=== PATIENT | male | born 1975 | race Caucasian/White ===

== ENCOUNTER 2021-08-12 05:36 | Emergency (ER) | payer SELFPAY ==
[2021-08-12] MEDS ORDERED: Hydromorphone 1 mg/ml Injection ONE (05:54)
[2021-08-12] MEDS ORDERED: Zofran 4 MG/2 ML VIAL ONE (05:54)
[2021-08-12] MEDS ORDERED: TORAdol 30 mg Injection ONE (05:54)
[2021-08-12] MEDS ORDERED: Zofran 4 MG/2 ML VIAL IV ONE (05:56)
[2021-08-12] MEDS ORDERED: Sodium Chloride 0.9% 1000 ML 1,000 ML IV STA ×2 (05:56→07:53)
[2021-08-12] MEDS ORDERED: Hydromorphone 1 mg/ml Injection IV ONE (05:56)
[2021-08-12] MEDS ORDERED: TORAdol 30 mg Injection IV ONE (05:56)
[2021-08-12] MEDS ORDERED: Sodium Chloride 0.9% 1000 ML 1,000 ML ONE ×2 (06:00→07:11)
[2021-08-12 06:09] LABS: Absolute Neutrophil Ct (ANC) 6.14 (1.4-6.9); Basophil (Absolute #) 0.05 (0-0.4); Eosinophil % 4.5 % (0.00-5.0); Eosinophil (Absolute #) 0.48 (0-0.5); Hematocrit 44.1 % (42-50); Hemoglobin 14.9 gm/dl (12.5-18.0); Lymphocyte (Absolute #) 3.16 (1.0-4.6); Lymphocytes % 29.6 % (24.0-44.0); Mean Cell Volume 83.4 fl (78-100); Mean Corpuscular Hemoglobin 28.2 pg (26-32); Mean Corpuscular Hgb Concent. 33.8 g/dl (32-36); Mean Platelet Volume 9.6 fl (7.5-11.0); Monocyte (Absolute #) 0.83 (0.0-1.3); Monocytes % 7.8 % (0.0-12.0); Neutrophil % 57.6 % (36.0-66.0); Platelet Count 398 K/mm3 (150-450); Red Blood Count 5.29 M/mm3 (4.1-5.6); Red Cell Distribution Width 14.3 % (11.5-14.0); White Blood Count 10.7 K/mm3 (4.0-10.5)
--- NOTE | 2021-08-12 06:11 | ERPHSYRPT ---
- History of Present Illness Historian: patient Exam Limitations: no limitations Patient Subjective Stated Complaint: pt states "I woke up and rolled over and the pain was horrible." Triage Nursing Assessment: pt came into the er via wheelchair; pt is axo x4; pt is grimacing, irritable; c/o rt flank pain; pt states 7/10 pain to rt lower back; c/o N; denies V/D; abd is round, soft, nontender; active bowel sounds in all quads; tenderness to rt flank area; pt unable to urinate at time of assessment; hypertensive Timing/Duration: hour(s) (1) Activities at Onset: none Quality: sharpness, stabbing Abdominal Pain Onset Location: flank (Right flank) Pain Radiation: RLQ, groin Severity of Pain-Max: severe Severity of Pain-Current: severe Modifying Factors: Improves With: nothing Associated Symptoms: nausea, vomiting Previous symptoms: same symptoms as today Hx Tetanus, Diphtheria Vaccination/Date Given: No Hx Influenza Vaccination/Date Given: No Hx Pneumococcal Vaccination/Date Given: No <MYRNA TITUS - Last Filed: 08/12/21 06:07> <VASQUEZ SANCHEZ - Last Filed: 08/12/21 08:11> - History of Present Illness Time Seen by Provider: 08/12/21 05:50 Physician History: Patient is a 45-year-old white male who awoke at 5:00 this morning with severe colicky right flank pain. Which radiated in the scrotal area he has had some nausea and vomiting. He has a history of renal stones approximately 20 years ago. 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 - Vaccination Dates Date of 2cond Vaccination (if applicable): 02/03 <MYRNA TITUS - Last Filed: 08/12/21 06:07> - Review of Systems Constitutional: No Fever, No Chills Eyes: No Symptoms Ears, Nose, & Throat: No Symptoms Respiratory: No Cough, No Dyspnea Cardiac: No Chest Pain, No Edema, No Syncope Abdominal/Gastrointestinal: Abdominal Pain, Nausea, Vomiting, No Diarrhea Genitourinary Symptoms: Flank Pain, No Dysuria Musculoskeletal: No Back Pain, No Neck Pain Skin: No Rash Neurological: No Dizziness, No Focal Weakness, No Sensory Changes Psychological: No Symptoms Endocrine: No Symptoms All Other Systems: Reviewed and Negative <MYRNA TITUS Filed: 08/12/21 06:07> - Past Medical History Pertinent Past Medical History: Yes Cardiac History: Hypertension Endocrine Medical History: Diabetes Type II - Past Surgical History Past Surgical History: Yes Musculoskeletal: Orthopedic Surgery Other Surgical History: left shoulder - Social History Smoking Status: Never smoker Exposure to second hand smoke: No Drug Use: none Patient Lives Alone: No <MYRNA TITUS Filed: 08/12/21 06:07> - Physical Exam General Appearance: moderate distress, alert Eye Exam: PERRL/EOMI, eyes nml inspection Ears, Nose, Throat Exam: normal ENT inspection, pharynx normal, moist mucous membranes Neck Exam: normal inspection, non-tender, supple, full range of motion Respiratory Exam: normal breath sounds, lungs clear, No respiratory distress Cardiovascular Exam: regular rate/rhythm, normal heart sounds Gastrointestinal/Abdomen Exam: soft, No tenderness, No mass Back Exam: normal inspection, normal range of motion, No CVA tenderness, No vertebral tenderness Extremity Exam: normal inspection, normal range of motion, pelvis stable Neurologic Exam: alert, oriented x 3, cooperative, normal mood/affect, nml cerebellar function, sensation nml, No motor deficits Skin Exam: normal color, warm, dry SpO2 Interpretation: normal SpO2: 100 O2 Delivery: Room Air <MYRNA TITUS Filed: 08/12/21 06:07> - Nursing Vital Signs Nursing Vital Signs: Initial Vital Signs Temperature 99 F 08/12/21 05:44 Pulse Rate 85 08/12/21 05:44 Respiratory Rate 24 08/12/21 05:44 Blood Pressure 178/127 08/12/21 05:44 O2 Sat by Pulse Oximetry 100 08/12/21 05:44 Pain Scale Pain Intensity 9 - Course Nursing assessment & vital signs reviewed: Yes <SHENAMYRNA VALENCIA Filed: 08/12/21 06:07> - CT Exams Abdomen/Pelvis CT Interpretation: Tele-radiologist Report (right upper ureter 4 mm stone with moderate hydronephrosis) <LAURA,VASQUEZ - Last Filed: 08/12/21 08:11> Ordered Tests: Active Orders 24 hr Category Date Time Status IV Insertion STAT Care 08/12/21 05:56 Active ABDOMEN AND PELVIS W/0 CONTRAS [CT] Stat Exams 08/12/21 05:56 Taken CBC W DIFF Stat Lab 08/12/21 06:04 Completed CMP Stat Lab 08/12/21 06:04 Completed LIPASE Stat Lab 08/12/21 06:04 Completed Lactic Acid Stat Lab 08/12/21 06:08 Completed UA W/RFX UR CULTURE Stat Lab 08/12/21 05:56 Ordered Medication Summary Generic Name Dose Route Start Last Admin Trade Name Freq PRN Reason Stop Dose Admin Sodium Chloride 1,000 mls @ 999 mls/hr 08/12/21 07:53 08/12/21 07:54 Sodium Chloride 0.9% 1000 Ml IV 08/12/21 08:53 999 mls/hr .Q1H1M STA Administration Discontinued Medications Generic Name Dose Route Start Last Admin Trade Name Freq PRN Reason Stop Dose Admin Fentanyl Citrate 100 mcg 08/12/21 06:56 08/12/21 07:00 Fentanyl Citrate 100 Mcg/2 Ml* Vial IV 08/12/21 06:57 100 mcg STAT ONE Administration Fentanyl Citrate Confirm 08/12/21 07:00 Fentanyl Citrate 100 Mcg/2 Ml* Vial Administered 08/12/21 07:01 Dose 100 mcg .ROUTE .STK-MED ONE Hydromorphone HCl Confirm 08/12/21 05:54 Hydromorphone 1 Mg/1ml Inj 1 Mg/Ml Syringe Administered 08/12/21 05:55 Dose 1 mg .ROUTE .STK-MED ONE Hydromorphone HCl 1 mg 08/12/21 05:56 08/12/21 06:00 Hydromorphone 1 Mg/1ml Inj 1 Mg/Ml Syringe IV 08/12/21 05:57 1 mg STAT ONE Administration Sodium Chloride 1,000 mls @ 999 mls/hr 08/12/21 05:56 08/12/21 07:53 Sodium Chloride 0.9% 1000 Ml IV 08/12/21 06:56 Infused .Q1H1M STA Infusion Sodium Chloride Confirm 08/12/21 06:00 Sodium Chloride 0.9% 1000 Ml Administered 08/12/21 06:01 Dose 1,000 mls @ ud .ROUTE .STK-MED ONE Sodium Chloride Confirm 08/12/21 07:11 Sodium Chloride 0.9% 1000 Ml Administered 08/12/21 07:12 Dose 1,000 mls @ ud .ROUTE .STK-MED ONE Ketorolac Tromethamine Confirm 08/12/21 05:54 Ketorolac Tromethamine 30 Mg/Ml Inj Administered 08/12/21 05:55 Dose 30 mg .ROUTE .STK-MED ONE Ketorolac Tromethamine 30 mg 08/12/21 05:56 08/12/21 05:59 Ketorolac Tromethamine 30 Mg/Ml Inj IV 08/12/21 05:57 30 mg STAT ONE Administration Ondansetron HCl Confirm 08/12/21 05:54 Ondansetron Hcl 4 Mg/2 Ml Vial Administered 08/12/21 05:55 Dose 4 mg .ROUTE .STK-MED ONE Ondansetron HCl 4 mg 08/12/21 05:56 08/12/21 05:59 Ondansetron Hcl 4 Mg/2 Ml Vial IV 08/12/21 05:57 4 mg STAT ONE Administration Tamsulosin HCl Confirm 08/12/21 07:55 Tamsulosin Hcl 0.4 Mg Cap Administered 08/12/21 07:56 Dose 0.4 mg .ROUTE .STK-MED ONE Tamsulosin HCl 0.4 mg 08/12/21 07:55 08/12/21 07:58 Tamsulosin Hcl 0.4 Mg Cap PO 08/12/21 07:56 0.4 mg ONCE STA Administration Lab/Rad Data: Laboratory Result Diagrams 08/12/21 06:04 08/12/21 06:04 Laboratory Results 08/12/21 08/12/21 08/12/21 Range/Units 06:08 06:04 06:04 WBC 10.7 H (4.0-10.5) K/mm3 RBC 5.29 (4.1-5.6) M/mm3 Hgb 14.9 (12.5-18.0) gm/dl Hct 44.1 (42-50) % MCV 83.4 (78-100) fl MCH 28.2 (26-32) pg MCHC 33.8 (32-36) g/dl RDW 14.3 H (11.5-14.0) % Plt Count 398 (150-450) K/mm3 MPV 9.6 (7.5-11.0) fl Gran % 57.6 (36.0-66.0) % Eos # (Auto) 0.48 (0-0.5) Absolute Lymphs (auto) 3.16 (1.0-4.6) Absolute Monos (auto) 0.83 (0.0-1.3) Lymphocytes % 29.6 (24.0-44.0) % Monocytes % 7.8 (0.0-12.0) % Eosinophils % 4.5 (0.00-5.0) % Basophils % 0.5 (0.0-0.4) % Absolute Granulocytes 6.14 (1.4-6.9) Basophils # 0.05 (0-0.4) Sodium 141 (137-145) mmol/L Potassium 3.5 (3.5-5.1) mmol/L Chloride 103 (98-107) mmol/L Carbon Dioxide 27 (22-30) mmol/L Anion Gap 14.1 (5-15) MEQ/L BUN 13 (9-20) mg/dL Creatinine 0.94 (0.66-1.25) mg/dL Estimated GFR > 60.0 ML/MIN Glucose 153 H (74-106) mg/dL Lactic Acid 1.6 (0.4-2.0) Calcium 9.3 (8.4-10.2) mg/dL Total Bilirubin 0.40 (0.2-1.3) mg/dL AST 25 (17-59) U/L ALT 26 (0-50) U/L Alkaline Phosphatase 101 (38-126) U/L Serum Total Protein 7.6 (6.3-8.2) g/dL Albumin 4.4 (3.5-5.0) g/dL Lipase 217 (23-300) U/L - Progress Progress: improved <MYRNA TITUS - Last Filed: 08/12/21 06:07> - Progress Progress: improved, pain not gone completely Discussed with Dr.: Other (Dr Orozco (urology)) Counseled pt/family regarding: lab results, diagnosis, need for follow-up, rad results <VASQUEZ SANCHEZ - Last Filed: 08/12/21 08:11> - Progress Progress Note: 08/12/21 08:02 Patient is examined patient pain is little bit better. CAT scan results discussed with patient. Urologist at [facility] contacted. I talked to Dr. Orozco urologist and he advised patient to who sent home with Flomax and muscle relaxer and pain medication and follow-up with him on Friday. He also advised that if pain recurs tell patient to come to the [facility] emergency room. I talked to the patient at length explained him and he understood it. (VASQUEZ SANCHEZ) - Departure Departure Disposition: Home Critical Care Time: No <SHENAANNIEMYRNA - Last Filed: 08/12/21 06:07> - Departure Departure Disposition: Home Critical Care Time: Yes Critical Care Time(excluding separately billable procedures): Critical 30-74 mins <VASQUEZ SANCHEZ - Last Filed: 08/12/21 08:11> - Departure Clinical Impression: Right ureteral stone Condition: Stable Referrals: DOCTOR,NO FAMILY [Primary Care Provider] - Follow up/PCP as directed NETTA OROZCO [COURTESY STAFF] - Follow Up with PCP/3 days (I talked to Dr. Morales and discussed the CAT scan report. CAT scan report are uploaded on cloud.) Instructions: Kidney Stones (DC), Flank Pain Additional Instructions: Discharge/Care Plan ARELIS SEWELL was seen on 08/12/21 in the Emergency Room. The patient was counseled regarding Diagnosis,Lab results, Imaging studies, need for follow up and when to return to the Emergency Room. Prescriptions given: Discharge Note I have spoken with the patient and/or caregivers. I have explained the patient's condition, diagnosis and treatment plan based on the information available to me at this time. I have answered the patient's and/or caregiver's questions and addressed any concerns. The patient and/or caregivers have as good understanding of the patient's diagnosis, condition and treatment plan as can be expected at this point. The vital signs have been stable. The patient's condition is stable and appropriate for discharge from the emergency department. The patient will pursue further outpatient evaluation with the primary care physician or other designated or consulting physician as outlined in the discharge instructions. The patient and/or caregivers are agreeable to this plan of care and follow-up instructions have been explained in detail. The patient and/or caregivers have received these instruction. The patient/and or caregivers are aware that any significant change in condition or worsening of symptoms s hould prompt an immediate return to this or the closest emergency department or call 911. ARELIS SEWELL was seen on 08/12/21 n the Emergency Room. At that time you were treated for an emergent condition, during your visit Laboratory, Radiology and/or other procedures may have been ordered. It is very important that you follow-up with your Primary Care Physician NO FAMILY DOCTOR within the next 24- 48 hours to review your Emergency Room visit and the final results of testing that was ordered. Some test results such as Urine Cultures, Blood Cultures, and other cultures if ordered will not be finalized for 24-48 hours. If you do not have a Primary Care Provider please call the medical records department at [phone] to obtain a copy of your results or you may sign into our patient portal to obtain these results by visiting us @ [email or web address] and completing the following steps: 1. Click on the Patient Portal link 2. Click the Patient Self Enrollment Link to complete the enrollment form and entering your 3. Once the enrollment form is completed you will receive an email with a temporary ID and password at the email address you provided. 4. Next choose a user name and password. Your user name must be at least 4 characters long and your password must be at least 4 characters long. 5. Choose a security question from the list and provide your answer to the question. If you already have signed into the Health Portal you may access your Health Care Information 06/01 by the following steps: 1. Login to our website @ [email or web address] 2. Enter your original user name and password. FAQS The [facility] Health Portal is an online tool that contains your Lab Results, Radiology Reports, Visit History, Discharge Instructions and Health Summary Lab and Radiology Results will not be available for 72 hours on the portal. The Portal is a secure site, passwords are encryted and URLs are re-written so they cannot be copied and pasted. You and authorized family members are the only ones who can access your Portal. Also there is a timeout feature that protects your information if you leave the Portal page open. If you have technical difficulty please use the Contact Us link on the page this will allow you to submit any questions you have regarding the Portal or you may contact the Medical Record Department at [phone]. You have a kidney stone which is in size of 4 mm on the right upper ureter area which is more in close proximity to your right kidney. We talked to the urologist and he advise to take the medicine as prescribed and follow-up with him on Friday or Friday. We have provided you their telephone number so please call tomorrow morning and make an appointment. You are also advised that if your pain get worse go to the [facility] emergency room where you will be manage by urology service. Prescriptions: Smz/Tmp Ds Tablet [Bactrim Ds Tablet] 1 udtab PO BID #20 tablet Cyclobenzaprine HCl 10 mg [Flexeril 10 MG] 10 mg PO TID #30 tablet Tamsulosin HCl 0.4 mg [Flomax 0.4 MG] 0.4 mg PO DAILY 30 Days #30 cap Hydrocodon/Ibupr 7.5mg/200mg [Vicoprofen 7.5mg/200mg Tablet] 1 tab PO Q6H #15 tablet MDD 4
[2021-08-12 06:19] LABS: ALBUMIN 4.4 g/dL (3.5-5.0); ALKALINE PHOSPHATASE 101 U/L (38-126); ANION GAP 14.1 MEQ/L (5-15); BLOOD UREA NITROGEN 13 mg/dL (9-20); CHLORIDE 103 mmol/L (98-107); Calcium 9.3 mg/dL (8.4-10.2); Carbon Dioxide 27 mmol/L (22-30); Creatinine 1 0.94 mg/dL (0.66-1.25); EST GLOMERULAR FILTRATION RATE > 60.0 ML/MIN; Glucose 153 mg/dL (74-106); LIPASE 217 U/L (23-300); Potassium 3.5 mmol/L (3.5-5.1); SGOT/AST 25 U/L (17-59); SGPT/ALT 26 U/L (0-50); SODIUM 141 mmol/L (137-145); Total Protein 7.6 g/dL (6.3-8.2)
[2021-08-12] MEDS ORDERED: SUBLIMAZE 100 MCG/2 ML IV ONE (06:56)
[2021-08-12] MEDS ORDERED: SUBLIMAZE 100 MCG/2 ML ONE (07:00)
[2021-08-12 07:53] VITALS: BP 150/86
[2021-08-12] MEDS ORDERED: Flomax 0.4 MG ONE (07:55)
[2021-08-12] MEDS ORDERED: Flomax 0.4 MG PO STA (07:55)
[2021-08-12 08:02] VITALS: PULSE 73; O2SAT 99
--- NOTE | 2021-08-12 20:02 | XRAY ---
Indication: Right flank pain, nausea, and vomiting. Multiple contiguous axial images obtained through the abdomen and pelvis without contrast using renal stone protocol. Comparison: None Lung bases demonstrates cluster medial left lower lobe noncalcified nodules, largest 1.3 cm with irregular margins. Also incompletely visualized 1 cm right middle lobe indeterminate noncalcified irregular nodularity. No infiltrate or effusion. Heart not enlarged. There is a 3-4 mm proximal right ureter calculus, approximately L3-L4 interspace level. Proximal right ureter sightly prominent along with right renal edema and mild hydronephrosis consistent with obstructive uropathy. No perinephric fluid. Noncontrasted stomach and bowel loops appear nonobstructed. Normal appendix. Mild scattered colonic diverticulosis without diverticulitis. No free fluid/air. Hepatomegaly measuring 21.2 cm. Gallbladder demonstrates punctate calculus. Remaining liver, gallbladder, pancreas, spleen, adrenal glands, kidneys, ureters, bladder, and aorta appear unremarkable for noncontrast exam. Osseous structures intact with minimal degenerative changes throughout the spine. Small fatty bilateral inguinal hernias. Impression: 1. 3-4 mm proximal right ureter calculus producing obstructive uropathy as detailed. 2. Punctate gallstone better evaluated with sonogram of clinically warranted. 3. Incidental hepatomegaly, colonic diverticulosis, and small fatty bilateral inguinal hernias. 4. Indeterminant noncalcified pulmonary nodules as detailed. Outside comparison studies recommended if available. If not, CT chest recommended. Comment: Preliminary interpretation made by [facility] who does not report incidental lung findings.
== END 2021-08-12 08:25 | disposition home or self-care (01) ==
LOC: ED 05:36
DX: N13.2 Hydronephrosis with renal and ureteral calculous obstruction (principal); Z87.442 Personal history of urinary calculi; R10.31 Right lower quadrant pain; R11.2 Nausea with vomiting, unspecified; I10 Essential (primary) hypertension; E11.9 Type 2 diabetes mellitus without complications; Z79.891 Long term (current) use of opiate analgesic
CPT/HCPCS: 36000; 36415; 74176; 80053; 83605; 83690; 85025; 96360; 96374; 96375; 99284; 99291; J1170; J1885; J2405; J3010; A9270-GY

== ENCOUNTER 2023-04-28 06:46 | Emergency (ER) | payer BC ==
[2023-04-28] MEDS ORDERED: Reglan 10 MG/2 ML IV ONE (07:07)
[2023-04-28] MEDS ORDERED: Sodium Chloride 0.9% 1000 ML 1,000 ML IV STA ×2 (07:07→09:13)
[2023-04-28] MEDS ORDERED: Hydromorphone 1 mg/ml Injection IV ONE (07:07)
[2023-04-28 07:08] VITALS: RESP 18; TEMP 97.3
[2023-04-28] MEDS ORDERED: Hydromorphone 1 mg/ml Injection ONE (07:14)
[2023-04-28] MEDS ORDERED: Reglan 10 MG/2 ML ONE (07:15)
[2023-04-28] MEDS ORDERED: Sodium Chloride 0.9% 1000 ML 1,000 ML ONE ×2 (07:15→09:28)
[2023-04-28 07:23] LABS: BASOPHIL % 0.3 % (0.0-0.4); Basophil (Absolute #) 0.05 x10^3/uL (0-0.4); Eosinophil % 5.1 % (0.00-5.0); Eosinophil (Absolute #) 0.83 x10^3/uL (0-0.5); Hematocrit 43.2 % (42-50); Hemoglobin 14.8 g/dL (12.5-18.0); IMMATURE GRAN # 0.07 x10^3u/L (0.00-0.03); IMMATURE GRAN % 0.4 % (0.00-0.4); Lymphocyte (Absolute #) 1.96 x10^3/uL (1.0-4.6); Mean Cell Volume 87.4 fL (78-100); Mean Corpuscular Hgb Concent. 34.3 g/dL (32-36); Mean Platelet Volume 9.6 fL (7.5-11.0); Monocyte (Absolute #) 1.49 x10^3/uL (0.0-1.3); Monocytes % 9.1 % (0.0-12.0); Neutrophil % 73.1 % (36.0-66.0); Platelet Count 356 x10^3/uL (150-450); Red Blood Count 4.94 x10^6/uL (4.1-5.6); Red Cell Distribution Width 12.5 % (11.5-14.0); White Blood Count 16.4 x10^3/uL (4.0-10.5)
[2023-04-28 07:38] LABS: ALBUMIN 4.7 g/dL (3.5-5.0); ANION GAP 16.8 MEQ/L (5-15); BILIRUBIN,TOTAL 0.5 mg/dL (0.2-1.3); Creatinine 1 1.88 mg/dL (0.66-1.25); EST GLOMERULAR FILTRATION RATE 44.1 ML/MIN; Total Protein 7.8 g/dL (6.3-8.2)
[2023-04-28] MEDS ORDERED: PIPERACILLIN/TAZOBACTAM 4.5 GM in Sodium Chloride 100ML MINI-BAG PLUS 100 ML IV ONE (08:23)
[2023-04-28] MEDS ORDERED: FLAGYL 500 MG IVPB 500 MG/100 ML BAG IV STA (08:24)
[2023-04-28] MEDS ORDERED: PIPERACILLIN/TAZOBACTAM IV ONE (08:29)
[2023-04-28] MEDS ORDERED: Sodium Chloride 100ML MINI-BAG PLUS 100 ML IV ONE (08:30)
--- NOTE | 2023-04-28 08:41 | XRAY ---
Indication: Abdominal pain, vomiting, and diarrhea. Diverticulitis. Multiple contiguous axial images obtained through the abdomen and pelvis using 80 cc Isovue 370 contrast. Comparison: August 12, 2021 Lung bases demonstrate grossly stable cluster medial left lower lobe indeterminant noncalcified nodules again largest 1.3 cm with irregular margins. Previous right middle lobe nodule is calcified favoring granulomatous etiology. Heart is not enlarged. Noncontrasted stomach and bowel loops appear nonobstructed with normal appendix. Again scattered colonic diverticulosis with new mild diverticulitis distal descending colon. Tiny fluid along left colic gutter but no walled off fluid collection or free air. Again incidental 20.5 cm hepatomegaly. Remaining liver, gallbladder, pancreas, spleen, adrenal glands, kidneys, ureters, bladder, and aorta are unremarkable. No pathologic retroperitoneal lymphadenopathy. Osseous structures intact again with minimal degenerative changes throughout the spine. Stable small fatty bilateral inguinal hernias. Impression: 1. Again scattered colonic diverticulosis with new diverticulitis distal descending colon. Tiny reactive free fluid but no free air. 2. Grossly stable indeterminant noncalcified left lower lobe pulmonary nodules. Again also comparison studies recommended if available. If not, baseline CT chest recommended with follow-up per Fleischner guidelines. 3. Stable chronic findings including hepatomegaly and fatty bilateral inguinal hernias.
--- NOTE | 2023-04-28 09:26 | ERPHSYRPT ---
- History of Present Illness Time Seen by Provider: 04/28/23 07:14 Patient Subjective Stated Complaint: pt states he was having vomiting and diarrhea on and friday. yesterday began having lower abd pain Triage Nursing Assessment: pt alert and oriented. answers questions approp. pt [id number] into room with steady gait noted. respirations nonlabored. skin warm and dry. abd tender to light palpation in lower abd. bowel sounds present x4 quads. Physician History: Patient is a 47-year-old white male who presents with abdominal pain. His pain actually started on or 5 days ago he seemed worse on Friday but that improved on Friday but then Friday and yesterday yesterday he felt worse. He rates his pain 4 of 10 presently because of the bloating pressure type feeling its been associated with pretty profound nausea vomiting and diarrhea. He has h ad no fever chills or sweats. He feels dehydrated. Other than a kidney stone he had no surgery on his abdomen in the past he does have a history of diverticulitis. Timing/Duration: day(s) (5), worse Activities at Onset: none Quality: fullness Abdominal Pain Onset Location: LLQ Pain Radiation: periumbilical Severity of Pain-Max: moderate Severity of Pain-Current: moderate Modifying Factors: Improves With: eating, movement Associated Symptoms: diarrhea, nausea, vomiting Previous symptoms: same symptoms as today Allergies/Adverse Reactions: No Known Drug Allergies Allergy (Verified 04/28/23 07:14) Home Medications: Amlodipine Besylate 5 mg [Norvasc 5 mg] 10 mg PO DAILY 04/28/23 [History] Atorvastatin Calcium 40 mg PO HS 04/28/23 [History] Cetirizine HCl 10 mg PO HS 04/28/23 [History] Cholecalciferol (Vitamin D3) [Vitamin D] 1 tab PO DAILY 04/28/23 [History] Glipizide 5 mg [Glucotrol 5 MG] 5 mg PO DAILY 04/28/23 [History] Liraglutide [Victoza 2-Jerry] 1.2 mg PO HS 04/28/23 [History] Lisinopril 20 mg [Zestril 20 MG] 40 mg PO DAILY 04/28/23 [History] Metformin HCl 500 mg [Glucophage 500 MG] 500 mg PO BIDWM 04/28/23 [History] Metoprolol Tartrate 50 mg [Lopressor 50 MG] 50 mg PO BID 04/28/23 [History] Multivitamin [Multi-Vitamin Daily] 1 tab PO DAILY 04/28/23 [History] [place]-3 Fatty Acids/Fish Oil [Fish Oil 1,000 mg Capsule] 1 tab PO DAILY 04/28/23 [History] Spironolactone 25 mg [Aldactone 25 MG] 25 mg PO HS 04/28/23 [History] Tirzepatide [Mounjaro] 5 mg SQ WEEKLY 04/28/23 [History] hydroCHLOROthiazide [Hydrochlorothiazide] 25 mg PO DAILY 04/28/23 [History] Hx Tetanus, Diphtheria Vaccination/Date Given: No Hx Influenza Vaccination/Date Given: No Hx Pneumococcal Vaccination/Date Given: No Travel Risk - International Travel Have you traveled outside of the country in past 3 weeks: No - Coronavirus Screening Are you exhibiting any of the following symptoms?: No Close contact with a COVID-19 positive Pt in past 14-21 Days: No - Vaccine Status Have you recieved a Covid-19 vaccination: Yes 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 - Vaccination Dates Date of 2cond Vaccination (if applicable): 02/03 - Review of Systems Constitutional: No Fever, No Chills Eyes: No Symptoms Ears, Nose, & Throat: No Symptoms Respiratory: No Cough, No Dyspnea Cardiac: No Chest Pain, No Edema, No Syncope Abdominal/Gastrointestinal: Abdominal Pain, Nausea, Vomiting, Diarrhea Genitourinary Symptoms: No Dysuria Musculoskeletal: No Back Pain, No Neck Pain Skin: No Rash Neurological: No Dizziness, No Focal Weakness, No Sensory Changes Psychological: No Symptoms Endocrine: No Symptoms All Other Systems: Reviewed and Negative - Past Medical History Pertinent Past Medical History: Yes Cardiac History: Hypertension Endocrine Medical History: Diabetes Type II GI Medical History: Diverticulitis Other Medical History: sleep apnea - Past Surgical History Past Surgical History: Yes Musculoskeletal: Orthopedic Surgery Male Surgical History: Other Other Surgical History: left shoulder, cystoscopy for kidney stone - Social History Smoking Status: Never smoker Exposure to second hand smoke: No Drug Use: none Patient Lives Alone: No - Nursing Vital Signs Nursing Vital Signs: Initial Vital Signs Temperature 97.3 F 04/28/23 06:56 Pulse Rate 92 H 04/28/23 06:56 Respiratory Rate 18 04/28/23 06:56 Blood Pressure 135/78 04/28/23 06:56 O2 Sat by Pulse Oximetry 100 04/28/23 06:56 Pain Scale Pain Intensity 4 - Physical Exam General Appearance: mild distress, alert Eye Exam: PERRL/EOMI, eyes nml inspection Ears, Nose, Throat Exam: normal ENT inspection, pharynx normal, moist mucous membranes Neck Exam: normal inspection, non-tender, supple, full range of motion Respiratory Exam: normal breath sounds, lungs clear, No respiratory distress Cardiovascular Exam: regular rate/rhythm, normal heart sounds Gastrointestinal/Abdomen Exam: tenderness, guarding, rebound, No mass Back Exam: normal inspection, normal range of motion, No CVA tenderness, No vertebral tenderness Extremity Exam: normal inspection, normal range of motion, pelvis stable Neurologic Exam: alert, oriented x 3, cooperative, normal mood/affect, nml cerebellar function, sensation nml, No motor deficits Skin Exam: normal color, warm, dry SpO2: 98 - Course Nursing assessment & vital signs reviewed: Yes - CT Exams Abdomen/Pelvis CT Interpretation: Other (Radiologist reads the CT scan is acute diverticulitis in the distal descending colon and a left pulmonary nodule.) Ordered Tests: Active Orders 24 hr Category Date Time Status IV Insertion STAT Care 04/28/23 07:07 Active ABDOMEN AND PELVIS W CONTRAST [CT] Stat Exams 04/28/23 07:08 Completed CBC W DIFF Stat Lab 04/28/23 07:20 Completed CMP Stat Lab 04/28/23 07:20 Completed LIPASE Stat Lab 04/28/23 07:20 Completed Lactic Acid Stat Lab 04/28/23 07:20 Completed UA W/RFX UR CULTURE Stat Lab 04/28/23 07:20 Received Medication Summary Generic Name Dose Route Start Last Admin Trade Name Freq PRN Reason Stop Dose Admin Sodium Chloride 1,000 mls @ 999 mls/hr 04/28/23 09:13 Sodium Chloride 0.9% 1000 Ml IV 04/28/23 10:13 .Q1H1M STA Discontinued Medications Generic Name Dose Route Start Last Admin Trade Name Freq PRN Reason Stop Dose Admin Hydromorphone HCl 1 mg 04/28/23 07:07 04/28/23 07:17 Hydromorphone 1 Mg/1ml Inj IV 04/28/23 07:08 1 mg STAT ONE Administration Hydromorphone HCl Confirm 04/28/23 07:14 Hydromorphone 1 Mg/1ml Inj Administered 04/28/23 07:15 Dose 1 mg .ROUTE .STK-MED ONE Sodium Chloride 1,000 mls @ 999 mls/hr 04/28/23 07:07 04/28/23 08:22 Sodium Chloride 0.9% 1000 Ml IV 04/28/23 08:07 Infused .Q1H1M STA Infusion Sodium Chloride Confirm 04/28/23 07:15 Sodium Chloride 0.9% 1000 Ml Administered 04/28/23 07:16 Dose 1,000 mls @ ud .ROUTE .STK-MED ONE Piperacillin Sod/Tazobactam 100 mls @ 200 mls/hr 04/28/23 08:23 04/28/23 08:34 Sod 4.5 gm/ Sodium Chloride IV 04/28/23 08:52 200 mls/hr STAT ONE Administration Metronidazole 500 mg in 100 mls @ 200 mls/hr 04/28/23 08:24 Flagyl 500 Mg Ivpb IV 04/28/23 08:53 STAT STA Sodium Chloride Confirm 04/28/23 08:30 Sodium Chloride 100ml Mini-Bag Plus Administered 04/28/23 08:31 Dose 100 mls @ ud IV .STK-MED ONE Metoclopramide HCl 10 mg 04/28/23 07:07 04/28/23 07:17 Metoclopramide Hcl 10 Mg/2 Ml Vial IV 04/28/23 07:08 10 mg STAT ONE Administration Metoclopramide HCl Confirm 04/28/23 07:15 Metoclopramide Hcl 10 Mg/2 Ml Vial Administered 04/28/23 07:16 Dose 10 mg .ROUTE .STK-MED ONE Piperacillin Sod/Tazobactam Sod Confirm 04/28/23 08:29 Piperacillin/Tazobactam Sodium 4.5 Gm Vial Administered 04/28/23 08:30 Dose 4.5 gm IV .STK-MED ONE Lab/Rad Data: Laboratory Result Diagrams 04/28/23 07:20 04/28/23 07:20 Laboratory Results 04/28/23 04/28/23 04/28/23 Range/Units 07:20 07:20 07:20 WBC 16.4 H (4.0-10.5) x10^3/uL RBC 4.94 (4.1-5.6) x10^6/uL Hgb 14.8 (12.5-18.0) g/dL Hct 43.2 (42-50) % MCV 87.4 (78-100) fL MCH 30.0 (26-32) pg MCHC 34.3 (32-36) g/dL RDW 12.5 (11.5-14.0) % Plt Count 356 (150-450) x10^3/uL MPV 9.6 (7.5-11.0) fL Gran % 73.1 H (36.0-66.0) % Immature Gran % (Auto) 0.4 (0.00-0.4) % Nucleat RBC Rel Count 0.0 (0.00-0.1) % Eos # (Auto) 0.83 H (0-0.5) x10^3/uL Immature Gran # (Auto) 0.07 H (0.00-0.03) x10^3u/L Absolute Lymphs (auto) 1.96 (1.0-4.6) x10^3/uL Absolute Monos (auto) 1.49 H (0.0-1.3) x10^3/uL Absolute Nucleated RBC 0.00 (0.00-0.01) x10^3u/L Lymphocytes % 12.0 L (24.0-44.0) % Monocytes % 9.1 (0.0-12.0) % Eosinophils % 5.1 H (0.00-5.0) % Basophils % 0.3 (0.0-0.4) % Absolute Granulocytes 12.00 H (1.4-6.9) x10^3/uL Basophils # 0.05 (0-0.4) x10^3/uL Sodium 137 (137-145) mmol/L Potassium 4.0 (3.5-5.1) mmol/L Chloride 102 (98-107) mmol/L Carbon Dioxide 22 (22-30) mmol/L Anion Gap 16.8 H (5-15) MEQ/L BUN 39 H (9-20) mg/dL Creatinine 1.88 H (0.66-1.25) mg/dL Estimated GFR 44.1 ML/MIN Glucose 123 H (74-106) mg/dL Lactic Acid 1.7 (0.4-2.0) Calcium 11.0 H (8.4-10.2) mg/dL Total Bilirubin 0.50 (0.2-1.3) mg/dL AST 23 (17-59) U/L ALT 26 (0-50) U/L Alkaline Phosphatase 81 (38-126) U/L Serum Total Protein 7.8 (6.3-8.2) g/dL Albumin 4.7 (3.5-5.0) g/dL Lipase 177 (23-300) U/L - Progress Progress: improved Medical Desision Making - Diagnostic Testing Diagnostic test were ordered, analyzed, and reviewed by me: Yes Radiological Interpretation: Reviewed by me - Risk of complications Low Risk: Low risk of morbidity from additional dx testing or treatment - Departure Departure Disposition: Home Clinical Impression: Acute diverticulitis Condition: Stable Critical Care Time: No Referrals: ANDREEA RENEE [Primary Care Provider] - Follow up/PCP as directed Instructions: Severe Abdominal Pain, Adult (DC) Prescriptions: Hydrocodone/Acetaminophen [Hydrocodone-Acetamin 5-325 mg] 1 tab PO Q6HPRN PRN 3 Days #12 tablet MDD 4 PRN Reason: Pain Ondansetron ODT 4 MG [Zofran Odt 4 mg] 4 mg PO Q6H PRN PRN #10 tablet PRN Reason: Vomiting Amox Tr/Potass Clav. 875 mg [Augmentin 875-125 Tablet] 875 mg PO BID 10 Days #20 tablet Metronidazole 500 mg [Flagyl 500 MG] 500 mg PO TID 10 Days #30 tablet
[2023-04-28] MEDS ORDERED: FLAGYL 500 MG IVPB 500 MG/100 ML BAG IV ONE (09:28)
[2023-04-28 09:41] VITALS: PULSE 62
[2023-04-28 10:06] VITALS: BP 121/85; O2SAT 99
== END 2023-04-28 10:55 | disposition home or self-care (01) ==
LOC: ED 06:46
DX: R11.2 Nausea with vomiting, unspecified (principal); I10 Essential (primary) hypertension; E11.9 Type 2 diabetes mellitus without complications; Z79.891 Long term (current) use of opiate analgesic; Z79.84 Long term (current) use of oral hypoglycemic drugs; Z79.85 Long-term (current) use of injectable non-insulin antidiabetic drugs; Z79.899 Other long term (current) drug therapy
CPT/HCPCS: 36415; 74177; 80053; 83605; 83690; 85025; 96360; 96361; 96365; 96374; 96375; 99284; J1170; J2543